=== PATIENT | female | born 1970 | race Caucasian/White ===

== ENCOUNTER 2018-12-13 00:49 | Observation (INO) ==
[2018-12-13 04:19] LABS: Basophils # 0.1 10*3/uL (0.0-0.2); Basophils % 1.2 % (0.0-0.8); Eosinophils # 0.1 10*3/uL (0.0-0.87); Eosinophils % 1.6 % (0.00-10.9); Hematocrit 38.9 VOL% (35.7-47.0); Hemoglobin 12.9 GM/DL (12.0-16.0); Immature Granulocytes % 0.9 %; Immature Granulocytes Absolute 0.07 #; Lymphocytes # 2.3 10*3/uL (1.4-4.0); Lymphocytes % 28.7 % (21.3-54.2); Mean Corpuscular HGB Conc 33.2 GM/DL (32-36); Mean Corpuscular Volume 86.3 FL (87-102); Mean Platelet Volume 11.2 FL (9.6-12.0); Monocytes % 6.8 % (1.7-12.7); Neutrophils % 60.8 % (38.7-73.9); Platelet Count 268 T/CUMM (130-400); Red Blood Count 4.51 MC/CUMM (3.8-5.5); Red Cell Distribution Width 13.2 % (9.3-17.3); White Blood Count 8.1 T/CUMM (4-12)
[2018-12-13 04:37] LABS: Albumin 3.6 G/DL (3.4-5.0); Bilirubin,Total 0.4 MG/DL (0.2-1.0); Calcium 9.4 MG/DL (8.5-10.1); Osmolality,Calculated 305.2 MOS/KG (273-304); Total Protein 7.8 G/DL (6.4-8.3)
[2018-12-13 04:56] LABS: Apearance,Urine CLOUDY (Clear); Bacteria,Urine Occasional /HPF (Few); Bilirubin,Urine Negative (Negative); Blood, Urine Negative (Negative); Glucose,Urine (UA) >=500 mg/dL (Negative); Ketones,Urine Negative (Negative); Mucus,Urine Occasional /LPF (Occasional); Nitrite,Urine Negative (Negative); Protein,Urine Negative; RBC,Urine 4 /HPF (0-4); Squamous Epithelial Cell,Urine Occasional /HPF (0-10); Urine Specific Gravity 1.018 (1.001-1.035); Urine Urobilinogen < 2.0 EU/DL (0.2-1.0); WBC,Urine 1 /HPF (0-6)
[2018-12-13] MEDS ORDERED: SODIUM CHLORIDE 0.9% 1,000 ML IV STA ×2 (04:59→06:04)
[2018-12-13] MEDS ORDERED: INSULIN REGULAR 100 UNIT/ML IV STA ×2 (04:59→06:04)
[2018-12-13 05:26] LABS: Allen Test Positive; Pt O2 Delivery Device Room Air
[2018-12-13 05:27] LABS: ABG Base Excess -1.8 MMOL/L (-2.5-2.5); ABG HCO3 22.9 MMOL/L (20-26); ABG Oxygen Saturation 97.2 % (95-100); ABG PCO2 40.4 MM HG (35-48); ABG PH 7.369 (7.35-7.45); ABG PO2 90.8 MM HG (80-95); ABG TCO2 20.6 MMOL/L (23-27)
[2018-12-13] MEDS ORDERED: ONDANSETRON 4 MG/2 ML VIAL IV PRN (08:32)
[2018-12-13] MEDS ORDERED: ACETAMINOPHEN 325 MG TABLET PO PRN (08:32)
[2018-12-13] MEDS ORDERED: MORPHINE 4 MG/1 ML VIAL IV PRN (08:32)
[2018-12-13] MEDS ORDERED: DEXTROSE 10% 25 GM/250 ML BAG IV PRN (08:34)
[2018-12-13] MEDS ORDERED: SODIUM CHLORIDE 0.9% 1,000 ML IV ONE (08:34)
[2018-12-13] MEDS ORDERED: GLUCAGON 1 MG VIAL IM PRN (08:34)
[2018-12-13] MEDS ORDERED: INSULIN REGULAR 100 UNIT/ML SUBCUT SCH (09:00)
[2018-12-13] MEDS ORDERED: ATENOLOL 50 MG TABLET PO SCH ×2 (09:00→15:00)
[2018-12-13] MEDS: ENOXAPARIN 30 MG/0.3 ML SYRINGE SUBCUT SCH (09:51)
[2018-12-13] MEDS: GLIMEPIRIDE 2 MG TABLET PO SCH (09:51)
[2018-12-13] MEDS: amLODIPine 10 MG TABLET PO SCH (09:51)
[2018-12-13] MEDS: PANTOPRAZOLE 40 MG TABLET PO SCH (09:51)
[2018-12-13] MEDS: SODIUM CHLORIDE 0.9% 1,000 ML IV SCH ×2 (10:39→17:41)
[2018-12-13 12:11] LABS: Calcium 8.4 MG/DL (8.5-10.1); Osmolality,Calculated 292.1 MOS/KG (273-304)
[2018-12-13 12:37] LABS: Urine Color Light Yellow (Yellow)
[2018-12-13] MEDS: INSULIN REGULAR 100 UNIT/ML SUBCUT SCH ×4 (14:14→23:50)
[2018-12-13 14:52] LABS: Creatinine,Urine Random 24 MG/DL; Total Protein,Urine Random 48 MG/DL; Urea Nitrogen, Urine Random 383 MG/DL
[2018-12-13] MEDS ORDERED: INSULIN GLARGINE 100 UNIT/ML SUBCUT SCH (21:00)
[2018-12-14] MEDS: SODIUM CHLORIDE 0.9% 1,000 ML IV SCH ×2 (01:50→08:31)
[2018-12-14] MEDS: INSULIN REGULAR 100 UNIT/ML SUBCUT SCH ×2 (03:51→05:23)
[2018-12-14 05:01] LABS: Basophils # 0.1 10*3/uL (0.0-0.2); Basophils % 0.7 % (0.0-0.8); Eosinophils # 0.2 10*3/uL (0.0-0.87); Eosinophils % 2.8 % (0.00-10.9); Hematocrit 34.8 VOL% (35.7-47.0); Hemoglobin 11.3 GM/DL (12.0-16.0); Immature Granulocytes % 0.9 %; Immature Granulocytes Absolute 0.07 #; Lymphocytes # 3.5 10*3/uL (1.4-4.0); Lymphocytes % 42.8 % (21.3-54.2); Mean Corpuscular HGB Conc 32.5 GM/DL (32-36); Mean Corpuscular Volume 87.7 FL (87-102); Mean Platelet Volume 11.1 FL (9.6-12.0); Neutrophils % 46.8 % (38.7-73.9); Platelet Count 268 T/CUMM (130-400); Red Blood Count 3.97 MC/CUMM (3.8-5.5); Red Cell Distribution Width 13.2 % (9.3-17.3); White Blood Count 8.2 T/CUMM (4-12)
[2018-12-14 05:36] LABS: Albumin 2.7 G/DL (3.4-5.0); Bilirubin,Total 0.5 MG/DL (0.2-1.0); Calcium 8.4 MG/DL (8.5-10.1); Osmolality,Calculated 289.3 MOS/KG (273-304); Risk Ratio 8.7; Total Protein 5.8 G/DL (6.4-8.3)
[2018-12-14] MEDS ORDERED: INSULIN REGULAR 100 UNIT/ML SUBCUT SCH (08:00)
[2018-12-14] MEDS: amLODIPine 10 MG TABLET PO SCH (08:28)
[2018-12-14] MEDS: PANTOPRAZOLE 40 MG TABLET PO SCH (08:28)
[2018-12-14] MEDS: GLIMEPIRIDE 2 MG TABLET PO SCH (08:28)
[2018-12-14] MEDS: ENOXAPARIN 30 MG/0.3 ML SYRINGE SUBCUT SCH (08:29)
[2018-12-14 09:11] VITALS: BP 134/67
[2018-12-14] MEDS ORDERED: OMEGA 3 ACID ETHYL ESTERS 1 GM CAPSULE PO SCH (21:00)
[2018-12-14] MEDS ORDERED: EZETIMIBE 10 MG TABLET PO SCH (21:00)
== END 2018-12-14 11:05 | disposition home or self-care (01) ==
LOC: N.ED 00:49 → INTOOBSV 07:17 → N.EDINP 07:17 → N.5E 08:46
PROVIDERS: ADMIT Internal Medicine; ATTEND Internal Medicine

== ENCOUNTER 2020-09-23 00:33 | Inpatient (IN) ==
[2020-09-23] MEDS ORDERED: methylPREDNISolone SOD SUC 125 MG/2 ML VIAL IV STA (02:54)
[2020-09-23 03:19] LABS: Basophils # 0.1 10*3/uL (0.0-0.2); Basophils % 1.1 % (0.0-0.8); Hematocrit 34.7 VOL% (35.7-47.0); Hemoglobin 11.2 GM/DL (12.0-16.0); Immature Granulocytes % 0.7 %; Immature Granulocytes Absolute 0.08 #; Lymphocytes # 1.2 10*3/uL (1.4-4.0); Lymphocytes % 10.7 % (21.3-54.2); Mean Corpuscular HGB Conc 32.3 GM/DL (32-36); Mean Corpuscular Volume 84.6 FL (87-102); Monocytes % 9.2 % (1.7-12.7); Neutrophils % 78.3 % (38.7-73.9); Platelet Count 214 T/CUMM (130-400); Red Cell Distribution Width 14.6 % (9.3-17.3); White Blood Count 11.2 T/CUMM (4-12)
[2020-09-23] MEDS ORDERED: ACETAMINOPHEN 500 MG TABLET ONE ×2 (03:24→03:38)
[2020-09-23 03:52] LABS: Albumin 2.4 G/DL (3.4-5.0); Bilirubin,Total 0.8 MG/DL (0.20-1.00); Osmolality,Calculated 286.5 MOS/KG (273-304); Potassium 4.2 MMOL/L (3.5-5.1); Total Protein 5.8 G/DL (6.4-8.2)
[2020-09-23] MEDS ORDERED: ACETAMINOPHEN 500 MG TABLET PO STA (04:12)
[2020-09-23] MEDS: FUROSEMIDE 40 MG/4 ML VIAL IV STA ×2 (04:15→05:00)
[2020-09-23] MEDS ORDERED: ALBUTEROL/IPRATROPIUM 3 ML NEB RESP TX STA (04:38)
[2020-09-23] MEDS ORDERED: LEVOFLOXACIN INJ 500 MG/100 ML PREMIX IV STA (04:43)
[2020-09-23] MEDS ORDERED: AZITHROMYCIN INJ 500 MG in SODIUM CHLORIDE 0.9% 250 ML IV ONE (05:22)
[2020-09-23] MEDS ORDERED: GLUCAGON 1 MG VIAL IM PRN (05:27)
[2020-09-23] MEDS ORDERED: ONDANSETRON 4 MG/2 ML VIAL IV PRN (05:27)
[2020-09-23] MEDS ORDERED: DEXTROSE 50% 25 GM/50 ML VIAL IV PRN (05:27)
[2020-09-23] MEDS ORDERED: ACETAMINOPHEN 325 MG TABLET PO PRN (05:27)
[2020-09-23] MEDS ORDERED: DOCUSATE SODIUM 100 MG CAPSULE PO PRN (05:27)
[2020-09-23] MEDS ORDERED: DEXAMETHASONE 10 MG/1 ML VIAL IV SCH ×2 (05:30→11:00)
[2020-09-23] MEDS ORDERED: ENOXAPARIN 80 MG/0.8 ML SYRINGE SUBCUT ONE (07:05)
[2020-09-23] MEDS: ENOXAPARIN 40 MG/0.4 ML SYRINGE SUBCUT SCH (07:07)
[2020-09-23] MEDS: cefTRIAXone 1,000 MG in SODIUM CHLORIDE 0.9% 100 ML IV SCH (07:58)
[2020-09-23] MEDS: INSULIN LISPRO 100 UNIT/ML SUBCUT SCH ×4 (08:15→20:32)
[2020-09-23 08:48] LABS: INR 1.1; PT Patient Result 11.9 SECS (10.5-12.0)
[2020-09-23] MEDS ORDERED: DEXAMETHASONE 4 MG/1 ML VIAL IV SCH (09:00)
[2020-09-23] MEDS: ASCORBIC ACID 500 MG TABLET PO SCH ×2 (09:40→20:33)
[2020-09-23] MEDS: FAMOTIDINE 20 MG TABLET PO SCH ×2 (09:40→20:33)
[2020-09-23] MEDS: CHOLECALCIFEROL 1,000 UNIT TABLET PO SCH (09:40)
[2020-09-23] MEDS: ZINC GLUCONATE 50 MG TABLET PO SCH (09:40)
[2020-09-23] MEDS: CETIRIZINE 10 MG TABLET PO SCH (09:40)
[2020-09-23] MEDS: DEXAMETHASONE 4 MG/1 ML VIAL IV SCH ×3 (09:49→20:33)
[2020-09-23] MEDS: AZITHROMYCIN INJ 500 MG in SODIUM CHLORIDE 0.9% 250 ML IV SCH (09:53)
[2020-09-23] MEDS: ALBUTEROL INHALER 18 GM INH SCH ×4 (10:45→23:09)
[2020-09-23] MEDS: LACTATED RINGERS 1,000 ML IV SCH ×2 (11:02→20:59)
[2020-09-23] MEDS ORDERED: GABAPENTIN 300 MG CAPSULE PO PRN (14:10)
[2020-09-23] MEDS: atenoloL 50 MG TABLET PO SCH (14:58)
[2020-09-23] MEDS: amLODIPine 5 MG TABLET PO SCH (14:58)
[2020-09-23] MEDS: INSULIN GLARGINE 100 UNIT/ML SUBCUT SCH (20:33)
[2020-09-23] MEDS: KRILL OM DHA EPA PHOSPHO AST PO SCH (20:44)
[2020-09-23] MEDS: [UNRECOGNIZED DRUG - OTHER] PO SCH (20:44)
[2020-09-24] MEDS: INSULIN LISPRO 100 UNIT/ML SUBCUT SCH ×6 (00:11→21:00)
[2020-09-24] MEDS: LACTATED RINGERS 1,000 ML IV SCH ×3 (01:14→13:46)
[2020-09-24] MEDS: DEXAMETHASONE 4 MG/1 ML VIAL IV SCH ×4 (02:42→21:19)
[2020-09-24] MEDS: ALBUTEROL INHALER 18 GM INH SCH ×5 (02:43→18:19)
[2020-09-24 04:06] LABS: Amorphous Crystals,Urine Occasional /HPF (Few); Bilirubin,Urine Negative (Negative); Blood, Urine Moderate mg/dL (Negative); Glucose,Urine (UA) >=500 mg/dL (Negative); Granular Casts,Urine 5 /LPF (0-1); Hyaline Casts,Urine 5 /LPF (0-3); Ketones,Urine Negative (Negative); Mucus,Urine Occasional /LPF (Occasional); Nitrite,Urine Negative (Negative); Protein,Urine >=500 MG/DL; RBC,Urine 3 /HPF (0-4); Squamous Epithelial Cell,Urine Occasional /HPF (0-10); Urine Appearance CLOUDY (Clear); Urine Color Yellow (Yellow); Urine Specific Gravity 1.018 (1.001-1.035); Urine Urobilinogen < 2.0 EU/DL (0.2-1.0)
[2020-09-24] MEDS: ENOXAPARIN 40 MG/0.4 ML SYRINGE SUBCUT SCH (06:09)
[2020-09-24] MEDS: cefTRIAXone 1,000 MG in SODIUM CHLORIDE 0.9% 100 ML IV SCH (06:29)
[2020-09-24 06:43] LABS: Basophils % 0.4 % (0.0-0.8); Hematocrit 33.1 VOL% (35.7-47.0); Hemoglobin 10.8 GM/DL (12.0-16.0); Immature Granulocytes % 0.9 %; Lymphocytes # 0.7 10*3/uL (1.4-4.0); Lymphocytes % 6.5 % (21.3-54.2); Mean Corpuscular HGB Conc 32.6 GM/DL (32-36); Mean Corpuscular Volume 84.7 FL (87-102); Mean Platelet Volume 10.9 FL (9.6-12.0); Monocytes % 4.4 % (1.7-12.7); Neutrophils % 87.8 % (38.7-73.9); Platelet Count 227 T/CUMM (130-400); Red Blood Count 3.91 MC/CUMM (3.8-5.5); Red Cell Distribution Width 14.4 % (9.3-17.3); White Blood Count 10.6 T/CUMM (4-12)
[2020-09-24 07:16] LABS: Calcium 8.1 MG/DL (8.5-10.1); Osmolality,Calculated 289.8 MOS/KG (273-304); Potassium 3.7 MMOL/L (3.5-5.1)
[2020-09-24] MEDS: ASCORBIC ACID 500 MG TABLET PO SCH ×2 (08:10→21:19)
[2020-09-24] MEDS: ZINC GLUCONATE 50 MG TABLET PO SCH (08:10)
[2020-09-24] MEDS: FAMOTIDINE 20 MG TABLET PO SCH ×2 (08:10→21:19)
[2020-09-24] MEDS: amLODIPine 5 MG TABLET PO SCH (08:10)
[2020-09-24] MEDS: COENZYME Q10 100 MG CAPSULE PO SCH (08:10)
[2020-09-24] MEDS: CHOLECALCIFEROL 1,000 UNIT TABLET PO SCH (08:10)
[2020-09-24] MEDS: KRILL OM DHA EPA PHOSPHO AST PO SCH ×2 (08:11→21:19)
[2020-09-24] MEDS: atenoloL 50 MG TABLET PO SCH (08:11)
[2020-09-24] MEDS: [UNRECOGNIZED DRUG - OTHER] PO SCH ×2 (08:11→21:19)
[2020-09-24] MEDS: CETIRIZINE 10 MG TABLET PO SCH (08:11)
[2020-09-24] MEDS: AZITHROMYCIN INJ 500 MG in SODIUM CHLORIDE 0.9% 250 ML IV SCH (08:46)
[2020-09-24] MEDS ORDERED: AZITHROMYCIN 250 MG TABLET PO SCH (09:00)
[2020-09-24] MEDS ORDERED: [UNRECOGNIZED DRUG - OTHER] PO SCH (09:00)
[2020-09-24] MEDS ORDERED: CHOLECALCIFEROL PO SCH (09:00)
[2020-09-24] MEDS: amLODIPine 10 MG TABLET PO SCH ×2 (11:59→12:14)
[2020-09-24] MEDS: cloNIDine 0.1 MG TABLET PO PRN (12:15)
[2020-09-24] MEDS: INSULIN GLARGINE 100 UNIT/ML SUBCUT SCH (21:19)
[2020-09-25] MEDS: LACTATED RINGERS 1,000 ML IV SCH ×2 (00:31→11:33)
[2020-09-25] MEDS: ALBUTEROL INHALER 18 GM INH SCH ×6 (00:31→18:06)
[2020-09-25] MEDS: cloNIDine 0.1 MG TABLET PO PRN ×2 (00:45→06:15)
[2020-09-25] MEDS: INSULIN LISPRO 100 UNIT/ML SUBCUT SCH ×6 (00:52→20:49)
[2020-09-25] MEDS: DEXAMETHASONE 4 MG/1 ML VIAL IV SCH ×3 (04:00→16:16)
[2020-09-25] MEDS: cefTRIAXone 1,000 MG in SODIUM CHLORIDE 0.9% 100 ML IV SCH (05:38)
[2020-09-25] MEDS: ENOXAPARIN 40 MG/0.4 ML SYRINGE SUBCUT SCH (05:38)
[2020-09-25 06:44] LABS: Basophils % 0.2 % (0.0-0.8); Hematocrit 36.6 VOL% (35.7-47.0); Hemoglobin 11.5 GM/DL (12.0-16.0); Immature Granulocytes Absolute 0.12 #; Lymphocytes # 1.2 10*3/uL (1.4-4.0); Lymphocytes % 10.6 % (21.3-54.2); Mean Corpuscular HGB Conc 31.4 GM/DL (32-36); Mean Corpuscular Volume 85.9 FL (87-102); Mean Platelet Volume 11.1 FL (9.6-12.0); Monocytes % 3.8 % (1.7-12.7); NRBC # 0.02 10*3/uL; Neutrophils % 84.4 % (38.7-73.9); Platelet Count 304 T/CUMM (130-400); Red Blood Count 4.26 MC/CUMM (3.8-5.5); Red Cell Distribution Width 14.6 % (9.3-17.3); White Blood Count 11.5 T/CUMM (4-12)
[2020-09-25 07:36] LABS: Calcium 8.5 MG/DL (8.5-10.1); Ferritin 310.3 ng/ml (8-252)
[2020-09-25] MEDS: KRILL OM DHA EPA PHOSPHO AST PO SCH ×2 (09:25→23:29)
[2020-09-25] MEDS: ASCORBIC ACID 500 MG TABLET PO SCH ×2 (09:25→20:54)
[2020-09-25] MEDS: CHOLECALCIFEROL 1,000 UNIT TABLET PO SCH (09:25)
[2020-09-25] MEDS: atenoloL 50 MG TABLET PO SCH (09:25)
[2020-09-25] MEDS: [UNRECOGNIZED DRUG - OTHER] PO SCH ×2 (09:25→23:29)
[2020-09-25] MEDS: COENZYME Q10 100 MG CAPSULE PO SCH (09:25)
[2020-09-25] MEDS: CETIRIZINE 10 MG TABLET PO SCH (09:25)
[2020-09-25] MEDS: FAMOTIDINE 20 MG TABLET PO SCH (09:25)
[2020-09-25] MEDS: ZINC GLUCONATE 50 MG TABLET PO SCH (09:25)
[2020-09-25] MEDS: amLODIPine 10 MG TABLET PO SCH (09:25)
[2020-09-25] MEDS: AZITHROMYCIN INJ 500 MG in SODIUM CHLORIDE 0.9% 250 ML IV SCH (09:49)
[2020-09-25] MEDS: DOXAZOSIN 1 MG TABLET PO SCH ×2 (11:15→20:54)
[2020-09-25] MEDS: methylPREDNISolone SOD SUC 40 MG/1 ML VIAL IV SCH (17:42)
[2020-09-25] MEDS: INSULIN GLARGINE 100 UNIT/ML SUBCUT SCH (20:53)
[2020-09-25] MEDS: BUDESONIDE/FORMOTEROL 160-4.5 INHALER 6 GM INH SCH (20:54)
[2020-09-25] MEDS: MELATONIN 3 MG TABLET PO PRN (20:57)
[2020-09-26] MEDS: ALBUTEROL INHALER 18 GM INH SCH ×6 (00:32→18:21)
[2020-09-26] MEDS: methylPREDNISolone SOD SUC 40 MG/1 ML VIAL IV SCH ×3 (00:32→16:45)
[2020-09-26] MEDS: INSULIN LISPRO 100 UNIT/ML SUBCUT SCH ×6 (00:32→21:15)
[2020-09-26] MEDS: ENOXAPARIN 40 MG/0.4 ML SYRINGE SUBCUT SCH (05:30)
[2020-09-26] MEDS: cefTRIAXone 1,000 MG in SODIUM CHLORIDE 0.9% 100 ML IV SCH (05:31)
[2020-09-26 06:47] LABS: Basophils % 0.2 % (0.0-0.8); Hematocrit 34.6 VOL% (35.7-47.0); Hemoglobin 11.8 GM/DL (12.0-16.0); Immature Granulocytes % 1.5 %; Immature Granulocytes Absolute 0.15 #; Lymphocytes # 1.5 10*3/uL (1.4-4.0); Lymphocytes % 15.3 % (21.3-54.2); Mean Corpuscular HGB Conc 34.1 GM/DL (32-36); Mean Platelet Volume 11.2 FL (9.6-12.0); Platelet Count 292 T/CUMM (130-400); Red Blood Count 4.12 MC/CUMM (3.8-5.5); Red Cell Distribution Width 14.3 % (9.3-17.3); White Blood Count 9.7 T/CUMM (4-12)
[2020-09-26 07:06] LABS: Hypochromasia 1+
[2020-09-26 07:07] LABS: Microcytosis 1+; Platelet Estimate Normal
[2020-09-26 07:08] LABS: Calcium 8.4 MG/DL (8.5-10.1); Ferritin 308.9 ng/ml (8-252); Osmolality,Calculated 294.8 MOS/KG (273-304); Potassium 3.8 MMOL/L (3.5-5.1)
[2020-09-26] MEDS: atenoloL 50 MG TABLET PO SCH (08:17)
[2020-09-26] MEDS: ZINC GLUCONATE 50 MG TABLET PO SCH (08:17)
[2020-09-26] MEDS: COENZYME Q10 100 MG CAPSULE PO SCH (08:18)
[2020-09-26] MEDS: ASCORBIC ACID 500 MG TABLET PO SCH ×2 (08:18→21:15)
[2020-09-26] MEDS: CHOLECALCIFEROL 1,000 UNIT TABLET PO SCH (08:18)
[2020-09-26] MEDS: amLODIPine 10 MG TABLET PO SCH (08:18)
[2020-09-26] MEDS: FAMOTIDINE 20 MG TABLET PO SCH (08:18)
[2020-09-26] MEDS: CETIRIZINE 10 MG TABLET PO SCH (08:18)
[2020-09-26] MEDS: DOXAZOSIN 1 MG TABLET PO SCH ×2 (08:19→21:15)
[2020-09-26] MEDS: KRILL OM DHA EPA PHOSPHO AST PO SCH ×2 (08:19→21:15)
[2020-09-26] MEDS: [UNRECOGNIZED DRUG - OTHER] PO SCH ×2 (08:19→21:15)
[2020-09-26] MEDS: BUDESONIDE/FORMOTEROL 160-4.5 INHALER 6 GM INH SCH ×2 (08:20→21:15)
[2020-09-26] MEDS: AZITHROMYCIN INJ 500 MG in SODIUM CHLORIDE 0.9% 250 ML IV SCH (10:14)
[2020-09-26] MEDS ORDERED: ALBUTEROL 1.25 MG/3 ML NEB RESP TX PRN (12:49)
[2020-09-26] MEDS: ALBUTEROL 1.25 MG/3 ML NEB RESP TX SCH ×2 (15:00→20:17)
[2020-09-26] MEDS: INSULIN GLARGINE 100 UNIT/ML SUBCUT SCH (21:15)
[2020-09-27] MEDS: ALBUTEROL 1.25 MG/3 ML NEB RESP TX SCH ×6 (00:13→20:02)
[2020-09-27] MEDS: methylPREDNISolone SOD SUC 40 MG/1 ML VIAL IV SCH ×3 (02:38→16:32)
[2020-09-27] MEDS: INSULIN LISPRO 100 UNIT/ML SUBCUT SCH ×6 (02:43→21:25)
[2020-09-27] MEDS: ENOXAPARIN 40 MG/0.4 ML SYRINGE SUBCUT SCH (05:55)
[2020-09-27] MEDS: cefTRIAXone 1,000 MG in SODIUM CHLORIDE 0.9% 100 ML IV SCH (05:56)
[2020-09-27 06:07] LABS: Calcium 8.1 MG/DL (8.5-10.1); Osmolality,Calculated 298.3 MOS/KG (273-304); Potassium 3.5 MMOL/L (3.5-5.1)
[2020-09-27] MEDS: KRILL OM DHA EPA PHOSPHO AST PO SCH ×2 (08:40→21:28)
[2020-09-27] MEDS: CETIRIZINE 10 MG TABLET PO SCH (08:40)
[2020-09-27] MEDS: [UNRECOGNIZED DRUG - OTHER] PO SCH ×2 (08:40→21:28)
[2020-09-27] MEDS: amLODIPine 10 MG TABLET PO SCH (08:40)
[2020-09-27] MEDS: DOXAZOSIN 1 MG TABLET PO SCH ×2 (08:40→21:27)
[2020-09-27] MEDS: COENZYME Q10 100 MG CAPSULE PO SCH (08:41)
[2020-09-27] MEDS: ZINC GLUCONATE 50 MG TABLET PO SCH (08:41)
[2020-09-27] MEDS: CHOLECALCIFEROL 1,000 UNIT TABLET PO SCH (08:41)
[2020-09-27] MEDS: atenoloL 50 MG TABLET PO SCH (08:41)
[2020-09-27] MEDS: FAMOTIDINE 20 MG TABLET PO SCH (08:41)
[2020-09-27] MEDS: ASCORBIC ACID 500 MG TABLET PO SCH ×2 (08:41→21:27)
[2020-09-27] MEDS: BUDESONIDE/FORMOTEROL 160-4.5 INHALER 6 GM INH SCH ×2 (08:50→21:28)
[2020-09-27] MEDS: AZITHROMYCIN INJ 500 MG in SODIUM CHLORIDE 0.9% 250 ML IV SCH (09:45)
[2020-09-27] MEDS: INSULIN GLARGINE 100 UNIT/ML SUBCUT SCH (21:25)
[2020-09-27] MEDS: MELATONIN 3 MG TABLET PO PRN (21:27)
[2020-09-27] MEDS: ALBUTEROL INHALER 18 GM INH SCH ×2 (21:38→23:29)
[2020-09-28] MEDS: INSULIN LISPRO 100 UNIT/ML SUBCUT SCH ×4 (00:47→12:30)
[2020-09-28] MEDS: ALBUTEROL 1.25 MG/3 ML NEB RESP TX SCH ×4 (00:55→11:56)
[2020-09-28] MEDS: methylPREDNISolone SOD SUC 40 MG/1 ML VIAL IV SCH ×2 (02:31→09:35)
[2020-09-28] MEDS: cefTRIAXone 1,000 MG in SODIUM CHLORIDE 0.9% 100 ML IV SCH (05:20)
[2020-09-28] MEDS: ENOXAPARIN 40 MG/0.4 ML SYRINGE SUBCUT SCH (05:30)
[2020-09-28] MEDS: FAMOTIDINE 20 MG TABLET PO SCH (09:24)
[2020-09-28] MEDS: ZINC GLUCONATE 50 MG TABLET PO SCH (09:25)
[2020-09-28] MEDS: CETIRIZINE 10 MG TABLET PO SCH (09:27)
[2020-09-28] MEDS: COENZYME Q10 100 MG CAPSULE PO SCH (09:28)
[2020-09-28] MEDS: CHOLECALCIFEROL 1,000 UNIT TABLET PO SCH (09:28)
[2020-09-28] MEDS: DOXAZOSIN 1 MG TABLET PO SCH (09:29)
[2020-09-28] MEDS: ASCORBIC ACID 500 MG TABLET PO SCH (09:29)
[2020-09-28] MEDS: atenoloL 50 MG TABLET PO SCH (09:30)
[2020-09-28] MEDS: amLODIPine 10 MG TABLET PO SCH (09:33)
[2020-09-28] MEDS: [UNRECOGNIZED DRUG - OTHER] PO SCH (09:33)
[2020-09-28] MEDS: KRILL OM DHA EPA PHOSPHO AST PO SCH (09:33)
[2020-09-28] MEDS: AZITHROMYCIN INJ 500 MG in SODIUM CHLORIDE 0.9% 250 ML IV SCH (09:40)
[2020-09-28] MEDS: BUDESONIDE/FORMOTEROL 160-4.5 INHALER 6 GM INH SCH (09:40)
[2020-09-28 13:16] LABS: Osmolality,Calculated 303.5 MOS/KG (273-304); Potassium 3.7 MMOL/L (3.5-5.1)
[2020-09-28 14:06] VITALS: BP 149/54
== END 2020-09-28 15:10 | disposition home or self-care (01) | DRG 193 ==
LOC: N.ED 00:33 → N.EDINP 05:18 → SUATTDRO 05:18 → N.CC 15:04 → N.4E 09-26 22:19
PROVIDERS: ADMIT Internal Medicine; ATTEND Internal Medicine